=== PATIENT | male | born 1995 | race Hispanic/Latino ===

== ENCOUNTER 2016-06-23 05:26 | Inpatient (IN) | payer OTHER ==
--- NOTE | 2016-06-23 05:45 | ED PDOC ---
HPI: Psych/Substance Abuse Time Seen by Provider: 06/23/16 05:33 Chief Complaint (Nursing): Psychiatric Evaluation Chief Complaint (Provider): alcohol intoxication, SI ED Caveat: Intoxicated History Per: Patient History/Exam Limitations: intoxication Onset/Duration Of Symptoms: Mins Current Symptoms Are (Timing): Still Present Additional Complaint(s): 21yo male presents to the ED for evaluation of alcohol intoxication and suicidal ideations. Patient was found in convenience store and states he was abandoned by his friends at the bar. Reports walking around park trying to find warmth when he went into convenience store and collapsed. States he "wanted to give up" and was feeling suicidal. Hx is limited due to intoxication. Past Medical History Reviewed: Historical Data, Nursing Documentation, Vital Signs Vital Signs: Last Vital Signs Temp 97.3 F L 06/23/16 05:36 Pulse 74 06/23/16 05:36 Resp 16 06/23/16 05:36 BP 112/82 06/23/16 05:36 Pulse Ox 99 06/23/16 05:36 - Medical History PMH: No Chronic Diseases - Surgical History Surgical History: No Surg Hx - Family History Family History: States: No Known Family Hx - Allergies Allergies/Adverse Reactions: Allergies Allergy/AdvReac Type Severity Reaction Status Date / Time No Known Allergies Allergy Verified 06/23/16 05:35 Review of Systems ROS Statement: Except As Marked, All Systems Reviewed And Found Negative Constitutional: Positive for: Other (alcohol intoxication ) Psych: Positive for: Suicidal ideation Physical Exam - Reviewed Nursing Documentation Reviewed: Yes Vital Signs Reviewed: Yes - Physical Exam Appears: Positive for: Well (alcohol on breath ), No Acute Distress Head Exam: Positive for: ATRAUMATIC, NORMAL INSPECTION, NORMOCEPHALIC Skin: Positive for: Normal Color, Warm, Dry Eye Exam: Positive for: Normal appearance, EOMI, PERRL ENT: Positive for: Normal ENT Inspection Neck: Positive for: Normal, Painless ROM, Supple Cardiovascular/Chest: Positive for: Regular Rate, Rhythm. Negative for: Murmur , Tachycardia Respiratory: Positive for: Normal Breath Sounds. Negative for: Wheezing, Respiratory Distress Gastrointestinal/Abdominal: Positive for: Normal Exam, Bowel Sounds, Soft. Negative for: Tenderness Back: Positive for: Normal Inspection Extremity: Positive for: Normal ROM. Negative for: Deformity, Swelling Neurologic/Psych: Positive for: Alert, Oriented - ECG O2 Sat by Pulse Oximetry: 99 Pulse Ox Interpretation: Normal (RA) Medical Decision Making Medical Decision Makin: Impression: alcohol intoxication Plan: Labs 1:1 crisis eval ED obs reassess Patient s/o to Dr. Stauffer at 0700 pending clinical sobriety and crisis eval. Scribe Attestation: Documented by Morgan Franco acting as a scribe for Harjit Potter MD. Provider Scribe Attestation: All medical record entries made by the Scribe were at my direction and personally dictated by me. I have reviewed the chart and agree that the record accurately reflects my personal performance of the history, physical exam, medical decision making, and the department course for this patient. I have also personally directed, reviewed, and agree with the discharge instructions and disposition. ED OBSERVATION Date of observation admission: 06/23/16 Time of observation admission: 05:52 - Observation admission statement Patient is being placed in observation because:: alcohol intoxication - Goals of Observation Goals of observation are:: pending clinical sobriety and crisis eval Disposition - Clinical Impression Clinical Impression: Alcohol abuse, Suicidal ideation - Patient ED Disposition Is Patient to be Admitted: Transfer of Care - Disposition Disposition: Transfer of Care Disposition Time: 07:00 Condition: STABLE Patient Signed Over To: Kenny Stauffer Handoff Comments: pending clinical sobriety and crisis eval
[2016-06-23 06:50] LABS: BASO % 0.2 % (0.0-2.0); EOS # 0.1 K/uL (0.0-0.7); EOS % 0.4 % (0.0-4.0); HEMATOCRIT 44.2 % (35.0-51.0); LYMPH # 2.5 K/uL (1.0-4.3); LYMPH % 15.5 % (20.0-40.0); MEAN CELL VOLUME 93.9 fl (80.0-94.0); MEAN CORPUSCULAR HEMOGLOBIN 32.3 pg (27.0-31.0); MEAN CORPUSCULAR HGB CONC 34.3 g/dL (33.0-37.0); MEAN PLATELET VOLUME 9.2 fl (7.2-11.7); MONO # 0.5 K/uL (0.0-0.8); MONO % 3.1 % (0.0-10.0); NEUT # 13.1 K/uL (1.8-7.0); NEUT % 80.8 % (50.0-75.0); RED CELL DISTRIBUTION WIDTH 12.6 % (11.5-14.5); WHITE BLOOD COUNT 16.3 K/uL (4.8-10.8)
[2016-06-23 07:01] LABS: ALCOHOL SERUM 126 mg/dl (0-10); BLOOD UREA NITROGEN 12 mg/dl (9-20); CALCIUM 9.1 mg/dL (8.4-10.2); CARBON DIOXIDE 20 mmol/L (22-30); CHLORIDE 110 mmol/L (98-107); GFR AFRICAN-AMERICAN > 60; GLUCOSE,RANDOM 111 mg/dL (75-110); POTASSIUM 3.9 MMOL/L (3.6-5.0); SODIUM 149 mmol/l (132-148)
--- NOTE | 2016-06-23 08:46 | ED PDOC ---
- Laboratory Results Result Diagrams: 06/23/16 06:40 06/23/16 06:40 Interpretation Of Abn Labs: 16.3 wbc - ECG O2 Sat by Pulse Oximetry: 99 Pulse Ox Interpretation: Normal - Radiology X-Ray: Read By Radiologist X-Ray Interpretation: No Acute Disease - Progress ED Course And Treament: 700: Took over care from Dr. Potter. Pending sobriety. Cxr ordered as wbc was mildly elevated. Crisis eval pending. 1036: Stable. AAOx3. Pain free. Family at bedside. No cough, dyspnea, dysuria, abd pain, headaches. Pt. to have repeat bloodwork in several days. Medically stable for psych admission. Crisis will admit. Wants librium 25mg. Disposition - Clinical Impression Clinical Impression: Alcohol abuse, Suicidal ideation - POA Present On Arrival: None - Disposition Disposition: Admitted as In-Patient Disposition Time: 10:38 Condition: FAIR
--- NOTE | 2016-06-23 09:29 | RAD ---
HISTORY: high wbc COMPARISON: No prior. FINDINGS: LUNGS: No active pulmonary disease. PLEURA: No significant pleural effusion identified, no pneumothorax apparent. CARDIOVASCULAR: Normal. OSSEOUS STRUCTURES: No significant abnormalities. VISUALIZED UPPER ABDOMEN: Normal. OTHER FINDINGS: None. IMPRESSION: No active disease.
[2016-06-23 10:38] VITALS: O2SAT 99
[2016-06-23 12:27] LABS: RBC URINE 3 /hpf (0-3); URINE BACTERIA RARE (<OCC); URINE BILIRUBIN NEGATIVE (NEGATIVE); URINE BLOOD NEGATIVE (NEGATIVE); URINE COLOR YELLOW (YELLOW); URINE GLUCOSE (UA) NEG (Normal); URINE KETONE TRACE mg/dL (NEGATIVE); URINE LEUKOCYTE ESTERASE NEG Leu/uL (Negative); URINE PROTEIN NEGATIVE (NEGATIVE); URINE UROBILINOGEN 0.2-1.0 mg/dL (0.2-1.0); WBC URINE 2 /hpf (0-5)
[2016-06-23] MEDS ORDERED: DiphenhydrAMINE 50 mg/ml Inj IM PRN (13:17)
[2016-06-23] MEDS ORDERED: Alum-Mag Hydrox-Simethicone Susp (30 mL) PO PRN (13:28)
[2016-06-23] MEDS ORDERED: Magnesium Hydroxide Susp 30 ml UD PO PRN (13:29)
--- NOTE | 2016-06-23 17:42 | CP.PCM.CON ---
History of Present Illness - History of Present Illness History of Present Illness: 21 yo male admitted to psyche unit because of alcohol intoxication and suicidal ideation. Review of Systems - Review of Systems All systems: reviewed and no additional remarkable complaints except (aside from those mentioned above, 12 point system review were negative by me) Past Patient History - Past Social History Smoking Status: Heavy Smoker > 10 Cigarettes Daily Chewing Tobacco Use: No Cigar Use: No Alcohol: Occasional Drugs: Cannabis - CARDIAC Hx Cardiac Disorders: No Hx Hypertension: No - PULMONARY Hx Tuberculosis: No - NEUROLOGICAL HX Cerebrovascular Accident: No Hx Seizures: No - HEENT Hx HEENT Problems: No - RENAL Hx Chronic Kidney Disease: No - ENDOCRINE/METABOLIC Hx Endocrine Disorders: No - HEMATOLOGICAL/ONCOLOGICAL Hx Cancer: No Hx Human Immunodeficiency Virus (HIV): No - INTEGUMENTARY Hx Dermatological Problems: No - MUSCULOSKELETAL/RHEUMATOLOGICAL Hx Musculoskeletal Disorders: No - GASTROINTESTINAL Hx Gastrointestinal Disorders: No - GENITOURINARY/GYNECOLOGICAL Hx Sexually Transmitted Disorders: No - PSYCHIATRIC Hx Depression: Yes Hx Physical Abuse: No Hx Sexual Abuse: No Hx Substance Use: Yes (marijuana) - SURGICAL HISTORY Hx Surgeries: No - ANESTHESIA Hx Anesthesia: No Meds Allergies/Adverse Reactions: Allergies Allergy/AdvReac Type Severity Reaction Status Date / Time No Known Allergies Allergy Verified 06/23/16 05:35 - Medications Medications: Current Medications Acetaminophen (Tylenol 325mg Tab) 650 mg PO Q6 PRN PRN Reason: pain 2 to 8 Al Hydrox/Mg Hydrox/Simethicone (Maalox Plus 30 Ml) 30 ml PO Q4 PRN PRN Reason: Indigestion / Heartburn Aripiprazole (Abilify) 10 mg PO DAILY INDY Diphenhydramine HCl (Benadryl) 50 mg IM Q6 PRN PRN Reason: eps if can not swallow Diphenhydramine HCl (Benadryl) 50 mg PO Q6 PRN PRN Reason: eps Escitalopram Oxalate (Lexapro) 5 mg PO DAILY INDY Folic Acid (Folic Acid) 1 mg PO DAILY INDY Haloperidol (Haldol) 5 mg PO Q4 PRN PRN Reason: Agitation Haloperidol Lactate (Haldol) 5 mg IM Q4 PRN PRN Reason: severe agitation Lorazepam (Ativan) 1 mg PO TID [facility] Last Admin: 06/23/16 16:55 Dose: 1 mg Lorazepam (Ativan) 2 mg PO Q4 PRN PRN Reason: withdrawal Lorazepam (Ativan) 2 mg IM Q4 PRN PRN Reason: Agitation/ and or withdrawal Magnesium Hydroxide (Milk Of Magnesia) 30 ml PO HS PRN PRN Reason: Constipation Multivitamins/Minerals (Therapeutic-M Tab) 1 tab PO DAILY INDY Thiamine HCl (Vitamin B1 Tab) 100 mg PO DAILY INDY Physical Exam - Constitutional Appears: No Acute Distress - Head Exam Head Exam: ATRAUMATIC - Eye Exam Eye Exam: absent: Scleral icterus - ENT Exam ENT Exam: Mucous Membranes Moist - Neck Exam Neck exam: Negative for: Meningismus - Respiratory Exam Respiratory Exam: absent: Rhonchi, Wheezes, Respiratory Distress - Cardiovascular Exam Cardiovascular Exam: REGULAR RHYTHM, +S1, +S2 - GI/Abdominal Exam GI & Abdominal Exam: Soft. absent: Tenderness - Rectal Exam Rectal Exam: Deferred - Extremities Exam Extremities exam: Negative for: pedal edema - Back Exam Back exam: NORMAL INSPECTION - Neurological Exam Neurological exam: Alert, Oriented x3 - Psychiatric Exam Psychiatric exam: Normal Affect - Skin Skin Exam: Dry, Intact Results - Vital Signs Recent Vital Signs: Last Vital Signs Temp 97.7 F 06/23/16 16:36 Pulse 94 H 06/23/16 16:36 Resp 18 06/23/16 16:36 BP 120/72 06/23/16 16:36 Pulse Ox 99 06/23/16 10:38 - Labs Result Diagrams: 06/23/16 06:40 06/23/16 06:40 Labs: Laboratory Results - last 24 hr 06/23/16 06/23/16 06:40 11:30 WBC 16.3 H RBC 4.70 Hgb 15.2 Hct 44.2 MCV 93.9 MCH 32.3 H MCHC 34.3 RDW 12.6 Plt Count 170 MPV 9.2 Neut % (Auto) 80.8 H Lymph % (Auto) 15.5 L [place] % (Auto) 3.1 Eos % (Auto) 0.4 Baso % (Auto) 0.2 Neut # 13.1 H Lymph # 2.5 [place] # 0.5 Eos # 0.1 Baso # 0.0 Sodium 149 H Potassium 3.9 Chloride 110 H Carbon Dioxide 20 L Anion Gap 23 H BUN 12 Creatinine 0.7 L Est GFR ( Amer) > 60 Est GFR (Non-Af Amer) > 60 Random Glucose 111 H Calcium 9.1 Urine Color Yellow Urine Clarity Slighty-cloudy Urine pH 5.0 Ur Specific [place] 1.025 Urine Protein Negative Urine Glucose (UA) Neg Urine Ketones Trace Urine Blood Negative Urine Nitrate Negative Urine Bilirubin Negative Urine Urobilinogen 0.2-1.0 Ur Leukocyte Esterase Neg Urine RBC (Auto) 3 Urine Microscopic WBC 2 Urine Bacteria Rare Hyaline Casts 0-2 Salicylates < 1.0 Urine Opiates Screen Negative Urine Methadone Screen Negative Acetaminophen < 10.0 L Ur Barbiturates Screen Negative Ur Phencyclidine Scrn Negative Ur Amphetamines Screen Negative U Benzodiazepines Scrn Negative U Oth Cocaine Metabols Negative U Cannabinoids Screen Positive H Alcohol, Quantitative 126 H Assessment & Plan (1) Suicidal ideation Status: Acute Comment: psyche is managing (2) Alcohol intoxication Status: Acute Comment: Ativan 1mg IM q 4hrs prn for agitation. Thiamine 100mg PO daily. FA 1mg PO daily
[2016-06-24] MEDS: Multivitamin With Minerals Tab PO SCH (09:01)
--- NOTE | 2016-06-24 10:11 | PCM.PSYCH ---
Initial Psychiatric Evaluation - Initial Psychiatric Evaluation Type of Admission: Voluntary Chief Complaint (in patient's own words): i am sad Patient's Reaction to Hospitalization: pt is very depressed History of Present Illness and Precipitating Events: This is a 22 yr old for his 2nd psych admission because pt has been very depressed and selfmedicating with Alcohol and presented to ER with severe depression and suicidal ideation and remained suiciidal even after he was sober and therefore admitted pt reports having history of bipolar disorder and was seeing a psychiatrist in [facility] who prescribed lexapro 2.5 mg daily and abilify 10 mg daily and pt has been compliant.pt because of hypomanic episode was involved in a episode of exposing himself and there is a charge against him and he has a court date and pt has no remorse for it.pt now feels depressed and regret for coming with friends in this area and got drunk in a birthday alliance party. Current Medications: Active Medications Generic Name Dose Route Start Last Admin Trade Name Freq PRN Reason Stop Dose Admin Acetaminophen 650 mg 06/23/16 13:30 Tylenol 325mg Tab PO Q6 PRN pain 2 to 8 Al Hydrox/Mg Hydrox/Simethicone 30 ml 06/23/16 13:28 Maalox Plus 30 Ml PO Q4 PRN Indigestion / Heartburn Aripiprazole 10 mg 06/24/16 09:00 06/24/16 09:01 Abilify PO 10 mg DAILY INDY Administration Diphenhydramine HCl 50 mg 06/23/16 13:17 Benadryl IM Q6 PRN eps if can not swallow Diphenhydramine HCl 50 mg 06/23/16 13:19 Benadryl PO Q6 PRN eps Escitalopram Oxalate 5 mg 06/24/16 09:00 06/24/16 09:01 Lexapro PO 5 mg DAILY INDY Administration Folic Acid 1 mg 06/24/16 09:00 06/24/16 09:01 Folic Acid PO 1 mg DAILY INDY Administration Haloperidol 5 mg 06/23/16 13:25 Haldol PO Q4 PRN Agitation Haloperidol Lactate 5 mg 06/23/16 13:26 Haldol IM Q4 PRN severe agitation Lorazepam 1 mg 06/23/16 13:00 06/24/16 09:01 Ativan PO 1 mg TID INDY Administration Lorazepam 2 mg 06/23/16 12:59 Ativan PO Q4 PRN withdrawal Lorazepam 2 mg 06/23/16 13:06 Ativan IM Q4 PRN Agitation/ and or withdrawal Magnesium Hydroxide 30 ml 06/23/16 13:29 Milk Of Magnesia PO HS PRN Constipation Multivitamins/Minerals 1 tab 06/24/16 09:00 06/24/16 09:01 Therapeutic-M Tab PO 1 tab DAILY INDY Administration Thiamine HCl 100 mg 06/24/16 09:00 06/24/16 09:01 Vitamin B1 Tab PO 100 mg DAILY INDY Administration Past Psychiatric History - Past Psychiatric History Previous Treatment History: Intensive Outpatient Prior Professional Help: pt was seeing a psychiatrist and prescribed lexapro and abilify Nature of Treatment: for bipolar disorder History of Abuse: pt denies History of ETOH/Drug Use: pt has h/o alcohol abuse History of Family Illness: not known Pertinent Medical Hx (Current Medical&Sleep Prob, Allergies): Allergies Allergy/AdvReac Type Severity Reaction Status Date / Time No Known Allergies Allergy Verified 06/23/16 05:35 ARIPiprazole [Abilify] 10 mg PO DAILY 06/23/16 Escitalopram [Lexapro] 2.5 mg PO DAILY 06/23/16 Review of Systems - Review of Systems All systems: reviewed and no additional remarkable complaints except Mental Status Examination - Personal Presentation Personal Presentation: Looks stated age - Affect Affect: Broad - Motor Activity Motor Activity: Calm - Mood Mood: Depressed, Anxious - Formal Thought Process Formal Thought Process: No Impairment - Obsessions/Compulsions Obsessions: No Compulsions: No - Cognitive Functions Orientation: Person, Place, Situation Sensorium: Alert Attention/Concentration: Easily distracted Abstract Thinking: As evidence by abstract perception of proverbs Estimate of Intelligence: Average Judgement: Imparied, as evidence by: Poor judgement, Imparied, as evidence by: Lack of insight into illness Memory: Recent intact, as evidence by: Ability to recall events of the day, Remote intact, as evidenced by: Ability to recall historical events - Risk Risk: Suicidal, Diminished functioning - Strength & Assets Inventory Strength & Assets Inventory: Cooperative DSM 5 DX - DSM 5 DSM 5 Diagnosis: bipolar disorder,most recent episode mixed alcohol abuse and dependence - Recommended/Plan of Treatment Treatment Recommendations and Plan of Treatment: Will increase lexapro to 5mg daily and continue abilify 10 mg daily and engage pt in therapy and groups. will continue to further titrate meds to stabilize the pt. will start ativan taper for alcohol withdrawl symptoms and monitor pt closely
[2016-06-25] MEDS: Multivitamin With Minerals Tab PO SCH (09:01)
--- NOTE | 2016-06-25 12:12 | PCM.PYCHDC ---
Mental Status Examination - Mental Status Examination Orientation: Person, Place, Situation, Time Memory: Intact Mood: Neutral Affect: Broad Speech: Appropriate Attention: WNL Concentration: WNL Association: WNL Fund of Knowledge: WNL Formal Thought Process: No Impairment Description of patient's judgement and insight: fair Psychotic Thoughts and Behaviors: denies a/v hallucinations Suicidal Ideation: No Current Homicidal Ideation?: No Plan: denies suicidal or homicidal thoughts Discharge Summary - Discharge Note Reason for Hospitalization: depression, intoxication Psychiatric History (includes Medical, Family, Personal Hx): for bipolar disorder Laboratory Data: Abnormal Lab Results 06/24/16 06:00 Hemoglobin A1c 5.7 RPR Nonreactive Consultations:: List each consultation separately and include: 1. Reason for request. 2. Findings. 3. Follow-up Consultations: seen by the hospitalist Summary of Hospital Course include:: 1. Description of specific treatment plan utilized for patients during their course of treatmen. 2. Summarize the time- course for resolution of acute symptoms and/or regressed behaviors. 3. Describe issues identified and worked on during hospitalization. 4. Describe medication utilized. 5. Describe medical problems identified and treated. 6. Reassessment of suicide risk Summary of Hospital Course: pt oriented to the unit. placed on routine safety protocols. his home medications were restarted and he was seen by the treatment team. pt indicated he was no longer having suicidal thoughts. he was future oriented- has a job interview on 06/26 and to start inpt substance abuse treatment this week. his family was supportive. he had meds at home and had outpt providers to whom he was linked. he was denying any si/hi at time of discharge. - Final Diagnosis (DSM 5) Condition upon Discharge: FAIR DSM 5: alcohol abuse major depression recurrent Disposition: HOME/ ROUTINE Follow-up Treatment Plan: follow up with aftercare as directed take medications as prescribed do not use alcohol, tobacco or other illicit substances call 911 if any suicidal or homicidal thoughts - Smoking Cessation Smoking Cessation Medication prescribed: No - Antipsychotic Medications Pt discharged on 2 or more routine antipsychotic medications: No
[2016-06-25 12:23] VITALS: BP 125/60; PULSE 61; RESP 16; TEMP 96.8
== END 2016-06-25 15:47 | disposition home or self-care (01) | DRG 885 ==
LOC: H.ER 05:26 → H.EROBSV 05:52 → OBSVTOIN 05:52 → H.ERHOLD 10:38 → H.PSYCH 11:42
PROVIDERS: ADMIT Psychiatry & Neurology Psychiatry; ATTEND Psychiatry & Neurology Psychiatry
DX: F33.9 Major depressive disorder, recurrent, unspecified (principal); R45.851 Suicidal ideations; F17.210 Nicotine dependence, cigarettes, uncomplicated; F10.129 Alcohol abuse with intoxication, unspecified; Y90.6 Blood alcohol level of 120-199 mg/100 ml